=== PATIENT | female | born 1985 | race Caucasian/White ===

== ENCOUNTER 2024-11-04 12:25 | Emergency (ER) | payer OTHER, SELFPAY ==
--- NOTE | ~2024-11-04 | XR_ITS ---
EXAMINATION: XR chest 2V DATE: 11/04/2024 14:30 INDICATION: Cough and congestion. Fever. TECHNIQUE: Frontal and lateral views of the chest were obtained. COMPARISON: None. FINDINGS: There are airspace opacities in left lower lobe, consistent with pneumonia. No pleural effu yumiko or pneumothorax. The heart size is normal. IMPRESSION: 1. Left lower lobe pneumonia. Reviewed, dictated and finalized at location A. [employer]
[2024-11-04 13:34] VITALS: BP 146/65; PULSE 129; RESP 20; TEMP 37.7; O2SAT 98
--- NOTE | 2024-11-04 13:49 | ED_ITS ---
HPI - Fever General Chief Complaint: Fever <Rupinder Navarro PA-C - Last Filed: 11/04/24 13:58> Stated Complaint: fever, UTI sx <Rupinder Navarro PA-C - Last Filed: 11/04/24 13:58> Time Seen by Provider: 11/04/24 13:49 <Rupinder Navarro PA-C - Last Filed: 11/04/24 13:58> Focused HPI: Patient is a 39-year-old female who presents the ED with report of fevers and URI symptoms. Patient reports her symptoms began on 10/27. She complains of fever, Tmax 104, productive cough, head fullness/congestion, hoarse quality to voice, ear pain, myalgias, fatigue, loss of appetite, intermittent nausea. States she blew her nose on and heard a large pop in her R ear. 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 Also reports burning with urination. Denies hematuria. Denies significant shortness breath, abdominal pain. Family members have not been sick. GENERAL: Mildly ill-appearing, thin, and in no acute distress. HEAD: Normocephalic, atraumatic. CHEST: Clear to auscultation. ?No respiratory distress. no significant focal lung sounds. HEART: tachycardic with regular rhythm.? NEURO: ?Alert and oriented x3. Patient screened in triage and initial orders placed.? ?Additional care and disposition to be based upon?diagnostic testing and treatment. <Rupinder Navarro PA-C - Last Filed: 11/04/24 13:58> Source: patient <Rupinder Navarro PA-C - Last Filed: 11/04/24 13:58> Mode of arrival: ambulatory <Rupinder Navarro PA-C - Last Filed: 11/04/24 13:58> Limitations: no limitations <Rupinder Navarro PA-C - Last Filed: 11/04/24 13:58> History of Present Illness HPI Narrative: Agree with HPI <Oz Adams MD - Last Filed: 11/04/24 15:47> Related Data Allergies/Adverse Reactions: Allergies Allergy/AdvReac Type Severity Reaction Status Date / Time Penicillins Allergy hives Verified 11/04/24 12:27 <Rupinder Navarro PA-C - Last Filed: 11/04/24 13:58> Review of Systems 2 Review of Systems: All systems reviewed & are unremarkable except as noted in HPI and below <Oz Adams MD - Last Filed: 11/04/24 15:47> Constitutional: Constitutional: Reports chills, Reports fatigue and Reports fever(s) <Oz Adams MD - Last Filed: 11/04/24 15:47> ENT: Reports nasal congestion and Reports sore throat <Oz Adams MD - Last Filed: 11/04/24 15:47> Cardiovascular: Cardiovascular: Reports no additional cardiovascular complaints <Oz Adams MD - Last Filed: 11/04/24 15:47> Respiratory: Respiratory: Reports cough and Reports dyspnea <Oz Adams MD - Last Filed: 11/04/24 15:47> Gastrointestinal: Gastrointestinal: Reports no additional gastrointestinal complaints <Oz Adams MD - Last Filed: 11/04/24 15:47> Genitourinary: Genitourinary: Reports no additional female genitourinary complaints <Oz dAams MD - Last Filed: 11/04/24 15:47> PMFSH Past Medical History Medical History: Medical History (Updated 11/04/24 @ 15:46 by Oz Adams MD) Healthy female adult <Rupinder Navarro PA-C - Last Filed: 11/04/24 13:58> Exam 2 Narrative: GENERAL: Well-appearing, well-nourished, and in no acute distress. HEAD: Normocephalic, atraumatic. ENT: Mucous membranes moist. mild pharyngeal erythema. Healing right tympanic membrane. Normal left tympanic membrane. CHEST: Clear to auscultation. No respiratory distress. HEART: Tachycardic and regular. Normal peripheral pulses. EXTREMITIES: Normal range of motion. No edema. NEURO: Alert and oriented x3. PSYCH: Normal mood and affect. <Oz Adams MD - Last Filed: 11/04/24 15:47> Course DIRECTOR REGULATORY COMPLIANCE/PA Physician Supervision Discussed labs, c x-ray, diagnosis, and treatment plan. D/c. <Oz Adams MD - Last Filed: 11/04/24 15:47> Vital Signs Vital signs: Vital Signs Temperature 99.9 F H 11/04/24 13:34 Pulse Rate 129 H 11/04/24 13:34 Respiratory Rate 20 11/04/24 13:34 Blood Pressure 146/65 H 11/04/24 13:34 Pulse Oximetry 98 11/04/24 13:34 Oxygen Delivery Room Air 11/04/24 13:34 Temperature 99.9 F H 11/04/24 13:34 Pulse Rate 129 H 11/04/24 13:34 Respiratory Rate 20 11/04/24 13:34 Blood Pressure 146/65 H 11/04/24 13:34 Pulse Oximetry 98 11/04/24 13:34 Oxygen Delivery Room Air 11/04/24 13:34 <Rupinder Navarro PA-C - Last Filed: 11/04/24 13:58> Vital Signs Temperature 99.9 F H 11/04/24 13:34 Pulse Rate 129 H 11/04/24 13:34 Respiratory Rate 20 11/04/24 13:34 Blood Pressure 146/65 H 11/04/24 13:34 Pulse Oximetry 98 11/04/24 13:34 Oxygen Delivery Room Air 11/04/24 13:34 Temperature 99.9 F H 11/04/24 13:34 Pulse Rate 129 H 11/04/24 13:34 Respiratory Rate 20 11/04/24 13:34 Blood Pressure 146/65 H 11/04/24 13:34 Pulse Oximetry 98 11/04/24 13:34 Oxygen Delivery Room Air 11/04/24 13:34 <Oz Adams MD - Last Filed: 11/04/24 15:47> MDM - Fever MDM Narrative Medical decision making narrative: MSE by TIAGO in triage. <Rupinder Navarro PA-C - Last Filed: 11/04/24 13:58> Lab Data Result diagrams: 11/04/24 14:16 11/04/24 14:16 <Rupinder Navarro PA-C - Last Filed: 11/04/24 13:58> Labs: Lab Results 11/04/24 11/04/24 Range/Units 14:16 15:04 WBC 11.9 H (4.5-10.0) K/mm3 RBC 4.94 (4.2-5.4) M/mm3 Hgb 14.1 (12.0-15.0) g/dL Hct 43.1 (37.0-47.0) % MCV 87.2 (80-100) fl MCH 28.5 (26-34) pg MCHC 32.7 (32-36) g/dl RDW 13.3 (11.5-14.5) % Plt Count 359 (150-375) k/mm3 MPV 9.1 (7.4-10.4) fl Immature Gran % (Auto) 0.5 (0-0.5) % Neut % (Auto) 82.4 H (45.5-73.1) % Lymph % (Auto) 7.6 L (18.3-44.2) % [place] % (Auto) 7.5 (2.6-8.5) % Eos % (Auto) 1.3 (0-4.4) % Baso % (Auto) 0.7 (0.2-1.2) % Lymph # (Auto) 0.90 (0.9-3.2) K/mm3 [place] # (Auto) 0.9 H (0.1-0.6) K/mm3 Eos # (Auto) 0.2 (0-0.3) K/mm3 Baso # (Auto) 0.1 (0.0-0.1) K/mm3 Abs Immat Gran (auto) 0.06 H (0.00-0.031) K/mm3 Absolute Neuts (auto) 9.8 H (1.3-6.7) K/mm3 Absolute Nucleated RBC 0.000 (0.0-0.012) K/mm3 Nucleated RBC % 0.0 (0.0-0.2) % Sodium 134 L (137-145) mmol/L Potassium 4.1 (3.4-5.0) mmol/L Chloride 99 (98-107) mmol/L Carbon Dioxide 28 (22-30) mmol/L Anion Gap 7 (4-12) mmol/L BUN 9 (7-17) mg/dL Creatinine 0.60 L (0.7-1.0) mg/dL Estim Creat Clear Calc 92 ml/min Estimated GFR > 60 (59 - ) Glucose 131 H (65-110) mg/dL Lactic Acid 1.1 (0.7-2.0) mmol/L Calcium 9.9 (8.4-10.2) mg/dL Magnesium 1.8 (1.6-2.3) mg/dL Total Bilirubin 0.9 (0.2-1.3) mg/dL AST 28 (14-36) U/L ALT 19 (6-35) U/L Alkaline Phosphatase 89 (38-126) U/L C-Reactive Protein 16.3 H (<1.0) mg/dL Total Protein 10.0 H (6.3-8.2) g/dL Albumin 4.6 (3.5-5.1) g/dL Urine Color Yellow (Yellow) Urine Appearance Clear (Clear) Urine pH 7.5 (5.0-9.0) Ur Specific [place] 1.019 (1.001-1.035) Urine Protein Negative (Negative) mg/dL Urine Glucose (UA) Negative (Negative) mg/dL Urine Ketones Negative (Negative) mg/dL Ur Blood (Man) Negative (Negative) Urine Nitrate Negative (Negative) Urine Bilirubin Negative (Negative) Urine Urobilinogen 1.0 (<2.0) mg/dL Leukocyte Esterase Rfl Negative (Negative) FELIPE/UL POC Urine HCG, Qual Negative (Negative) Influenza A (RT-PCR) Negative (Negative) Influenza B (RT-PCR) Negative (Negative) RSV (RT-PCR) Negative (Negative) SARS-CoV-2 RNA (RT-PCR) Negative (Negative) <Rupinder Navarro PA-C - Last Filed: 11/04/24 13:58> Lab Results 11/04/24 11/04/24 Range/Units 14:16 15:04 WBC 11.9 H (4.5-10.0) K/mm3 RBC 4.94 (4.2-5.4) M/mm3 Hgb 14.1 (12.0-15.0) g/dL Hct 43.1 (37.0-47.0) % MCV 87.2 (80-100) fl MCH 28.5 (26-34) pg MCHC 32.7 (32-36) g/dl RDW 13.3 (11.5-14.5) % Plt Count 359 (150-375) k/mm3 MPV 9.1 (7.4-10.4) fl Immature Gran % (Auto) 0.5 (0-0.5) % Neut % (Auto) 82.4 H (45.5-73.1) % Lymph % (Auto) 7.6 L (18.3-44.2) % [place] % (Auto) 7.5 (2.6-8.5) % Eos % (Auto) 1.3 (0-4.4) % Baso % (Auto) 0.7 (0.2-1.2) % Lymph # (Auto) 0.90 (0.9-3.2) K/mm3 [place] # (Auto) 0.9 H (0.1-0.6) K/mm3 Eos # (Auto) 0.2 (0-0.3) K/mm3 Baso # (Auto) 0.1 (0.0-0.1) K/mm3 Abs Immat Gran (auto) 0.06 H (0.00-0.031) K/mm3 Absolute Neuts (auto) 9.8 H (1.3-6.7) K/mm3 Absolute Nucleated RBC 0.000 (0.0-0.012) K/mm3 Nucleated RBC % 0.0 (0.0-0.2) % Sodium 134 L (137-145) mmol/L Potassium 4.1 (3.4-5.0) mmol/L Chloride 99 (98-107) mmol/L Carbon Dioxide 28 (22-30) mmol/L Anion Gap 7 (4-12) mmol/L BUN 9 (7-17) mg/dL Creatinine 0.60 L (0.7-1.0) mg/dL Estim Creat Clear Calc 92 ml/min Estimated GFR > 60 (59 - ) Glucose 131 H (65-110) mg/dL Lactic Acid 1.1 (0.7-2.0) mmol/L Calcium 9.9 (8.4-10.2) mg/dL Magnesium 1.8 (1.6-2.3) mg/dL Total Bilirubin 0.9 (0.2-1.3) mg/dL AST 28 (14-36) U/L ALT 19 (6-35) U/L Alkaline Phosphatase 89 (38-126) U/L C-Reactive Protein 16.3 H (<1.0) mg/dL Total Protein 10.0 H (6.3-8.2) g/dL Albumin 4.6 (3.5-5.1) g/dL Urine Color Yellow (Yellow) Urine Appearance Clear (Clear) Urine pH 7.5 (5.0-9.0) Ur Specific [place] 1.019 (1.001-1.035) Urine Protein Negative (Negative) mg/dL Urine Glucose (UA) Negative (Negative) mg/dL Urine Ketones Negative (Negative) mg/dL Ur Blood (Man) Negative (Negative) Urine Nitrate Negative (Negative) Urine Bilirubin Negative (Negative) Urine Urobilinogen 1.0 (<2.0) mg/dL Leukocyte Esterase Rfl Negative (Negative) FELIPE/UL POC Urine HCG, Qual Negative (Negative) Influenza A (RT-PCR) Negative (Negative) Influenza B (RT-PCR) Negative (Negative) RSV (RT-PCR) Negative (Negative) SARS-CoV-2 RNA (RT-PCR) Negative (Negative) <Oz Adams MD - Last Filed: 11/04/24 15:47> Imaging Data Radiologist's impression: ITS Impressions Chest X-Ray 11/04/24 14:31 IMPRESSION: 1. Left lower lobe pneumonia. <Oz Adams MD - Last Filed: 11/04/24 15:47> ECG Data EKG #1: ECG completion date: 11/04/24 <Oz Adams MD - Last Filed: 11/04/24 15:47> ECG completion time: 14:16 <Oz Adams MD - Last Filed: 11/04/24 15:47> EKG Interpretation: tachycardia (103), non-specific ST changes, normal QRS, normal QT and NL axis <Oz Adams MD - Last Filed: 11/04/24 15:47> Discharge Plan Discharge Clinical Impression: Pneumonia <Rupinder Navarro PA-C - Last Filed: 11/04/24 13:58> Patient Disposition: Home, Self-Care <Rupinder Navarro PA-C - Last Filed: 11/04/24 13:58> Condition: Stable <Rupinder Navarro PA-C - Last Filed: 11/04/24 13:58> Instructions: Pneumonia (ED) <WATSON Lucio Last Filed: 11/04/24 13:58> Additional Instructions: Please return to the emergency department if you develop severe and persistent chest pain, difficulty breathing, dizziness, leg swelling or if you are coughing up blood as these can be signs of a medical emergency. Please call your doctor for a follow up appointment to determine the need for further testing. <Rupinder Navarro PA-C - Last Filed: 11/04/24 13:58> Patient Language: Romanian <Rupinder Navarro PA-C - Last Filed: 11/04/24 13:58> Prescriptions: New doxycycline hyclate 100 mg capsule 100 mg PO BID Qty: 10 0RF <WATSON Lucio Last Filed: 11/04/24 13:58> Follow-up/Referrals: PHYSICIAN NOT ON STAFF,NONSTAFF [Non-Staff] - 1 Week <WATSON Lucio Last Filed: 11/04/24 13:58>
--- NOTE | 2024-11-04 13:52 | ECG_ITS ---
Test Date: 2024-11-04 14:16:58 Measurements Intervals [place] Rate: 103 P: 80 FL: 128 QRS: 79 QRSD: 69 T: 56 QT: 290 QTc: 380 Interpretive Statements SINUS TACHYCARDIA with short FL interval POSSIBLE LEFT ATRIAL ENLARGEMENT [-0.1mV P WAVE IN V1/V2] No previous ECG available for comparison Electronically Signed On 11-04-2024 18:04:06 [employer] by Kevin Joyec M.D.
[2024-11-04] MEDS: ACETAMINOPHEN 500 MG TABLET 1000 MG PO (14:18)
[2024-11-04 14:30] LABS: Basophils Absolute Auto 0.1 K/mm3 (0.0-0.1); Basophils Percent Auto 0.7 % (0.2-1.2); Eosinophils Absolute Auto 0.2 K/mm3 (0-0.3); Eosinophils Percent Auto 1.3 % (0-4.4); Hematocrit 43.1 % (37.0-47.0); Hemoglobin 14.1 g/dL (12.0-15.0); Immature Granulocyte Absolute 0.06 K/mm3 (0.00-0.031); Immature Granulocyte Percent A 0.5 % (0-0.5); Lymphocytes Percent Auto 7.6 % (18.3-44.2); Mean Corpuscular HGB Conc 32.7 g/dl (32-36); Mean Corpuscular Hemoglobin 28.5 pg (26-34); Mean Corpuscular Volume 87.2 fl (80-100); Mean Platelet Volume 9.1 fl (7.4-10.4); Monocytes Absolute Auto 0.9 K/mm3 (0.1-0.6); Monocytes Percent Auto 7.5 % (2.6-8.5); Neutrophils Absolute Auto 9.8 K/mm3 (1.3-6.7); Neutrophils Percent Auto 82.4 % (45.5-73.1); Platelet Count Result 359 k/mm3 (150-375); Red Blood Count 4.94 M/mm3 (4.2-5.4); Red Cell Distribution Width 13.3 % (11.5-14.5); White Blood Count 11.9 K/mm3 (4.5-10.0)
[2024-11-04 14:31] LABS: Add Urine Microscopic? NO; Appearance Urine Clear (Clear); Bilirubin Urine Negative (Negative); Blood Urine Negative (Negative); Color Urine Yellow (Yellow); Glucose Urine UA Negative (Negative); Ketones Urine Negative (Negative); Leukocyte Esterase Ur Negative LEU/UL (Negative); Nitrate Urine Negative (Negative); Protein Urine Negative (Negative); Specific Grav Ur 1.019 (1.001-1.035); pH Urine 7.5 (5.0-9.0)
[2024-11-04 14:44] LABS: Lactic Acid Reflex 1.1 mmol/L (0.7-2.0)
[2024-11-04 14:48] LABS: Magnesium 1.8 mg/dL (1.6-2.3)
[2024-11-04 14:49] LABS: Alanine Aminotransferase 19 U/L (6-35); Albumin Level 4.6 g/dL (3.5-5.1); Alkaline Phosphatase 89 U/L (38-126); Anion Gap 7 mmol/L (4-12); Aspartate Amino Transferase 28 U/L (14-36); Bilirubin,Total 0.9 mg/dL (0.2-1.3); Blood Urea Nitrogen 9 mg/dL (7-17); Calcium 9.9 mg/dL (8.4-10.2); Carbon Dioxide 28 mmol/L (22-30); Chloride 99 mmol/L (98-107); Estimated CRCL calculation 92 ml/min; Estimated Glomerular Filt Rate > 60; Glucose 131 mg/dL (65-110); Potassium 4.1 mmol/L (3.4-5.0); Sodium 134 mmol/L (137-145)
[2024-11-04] MEDS: SODIUM CHLORIDE 0.9% IV 1,000 ML 999 ML IV CONT (14:57)
[2024-11-04 15:00] LABS: CRP 16.3 mg/dL (<1.0)
[2024-11-04 15:04] LABS: Influenza A QL RT-PCR Negative (Negative); Influenza B QL RT-PCR Negative (Negative); RSV RNA, RT-PCR Negative (Negative); SARS-CoV-2 RNA PCR Negative (Negative)
[2024-11-04 15:05] LABS: BEDSIDEPREGUCG Negative (Negative)
[2024-11-04 15:54] VITALS: RESP 20; O2SAT 97
== END 2024-11-04 15:57 | disposition home or self-care (01) ==
PROVIDERS: Physician Assistant; Emergency Provider Emergency Medicine
DX: J18.9 Pneumonia, unspecified organism (principal); Z20.822 Contact with and (suspected) exposure to COVID-19; R00.0 Tachycardia, unspecified; R94.31 Abnormal electrocardiogram [ECG] [EKG]
CPT/HCPCS: 36415; 71046; 80053; 81003; 81025; 83605; 83735; 85025; 86140; 87637; 93005; 96360; 99283; A9270; J7030